=== PATIENT | male | born 1985 | race Caucasian/White ===

== ENCOUNTER 2017-02-20 02:22 | Emergency (ER) | payer SELFPAY ==
[~2017-02-20] VITALS: Ht 175.3 cm; Wt 75.0 kg
[~2017-02-20 02:22] MED LIST: HYDR-2952 PO; Z.0.NO CURRENT MEDS
[2017-02-20 02:24] VITALS: BP 145/90; PULSE 95; RESP 20; TEMP 98.1; O2SAT 100
[2017-02-20 04:38] VITALS: BP 129/88; PULSE 96; RESP 14; O2SAT 97
--- NOTE | 2017-02-20 06:25 | PD ---
HPI Chief Complaint: OD/ Ingestion Time Seen by Provider: 02:25 Travel History International Travel<30 days: No Contact w/Intl Traveler<30days: No Traveled to known affect area: No History of Present Illness HPI Patient had an unintentional overdose of heroin . Pt comes in by paramedics who gave him 0.4 mg of Narcan with good response . Pt now is wide awake and during his time in the ER he does not fall asleep again or become respiratorily distressed no decreased RR PFSH Past Medical History Depression: Yes (STATED WAS PRESCRIBED ZOLOFT, BUT DOESN'T TAKE IT) Cancer: No Cardiovascular Problems: No Endocrine: No Genitourinary: No Medical other: Yes (HX DRUG USE) Musculoskeletal: Yes Neurologic: Yes (HX SUBDURAL HEMORRHAGE 2003) Respiratory: No Influenza Vaccination: No Past Surgical History Pacemaker: No Other Surgery: Yes (RIGHT ARM SURGERY X 4) Social History Alcohol Use: Yes Tobacco Use: Yes Substance Use: No (PT DENIES) Allergies-Medications (Allergen,Severity, Reaction): Coded Allergies: No Known Allergies (Verified , 05/28/11) Reported Meds & Prescriptions Reported Meds & Active Scripts Active No Active Prescriptions or Reported Medications Physical Exam Narrative GENERAL: Awake alert oriented 3 no signs of somnolence or respiratory depression SKIN: Focused skin assessment warm/dry. HEAD: Atraumatic. Normocephalic. EYES: Pupils equal and round. No scleral icterus. No injection or drainage. ENT: No nasal bleeding or discharge. Mucous membranes pink and moist. NECK: Trachea midline. No JVD. CARDIOVASCULAR: Regular rate and rhythm. No murmur appreciated. RESPIRATORY: No accessory muscle use. Clear to auscultation. Breath sounds equal bilaterally. GASTROINTESTINAL: Abdomen soft, non-tender, nondistended. Hepatic and splenic margins not palpable. MUSCULOSKELETAL: No obvious deformities. No clubbing. No cyanosis. No edema. NEUROLOGICAL: Awake and alert. No obvious cranial nerve deficits. Motor grossly within normal limits. Normal speech. PSYCHIATRIC: Appropriate mood and affect; insight and judgment normal. Data Data Last Documented VS Vital Signs Date Time Temp Pulse Resp B/P (MAP) Pulse Ox O2 Delivery O2 Flow Rate FiO2 02/20/17 06:29 78 16 100/54 (69) 99 02/20/17 04:38 Room Air 02/20/17 02:24 98.1 Orders Orders Ed Discharge Order (02/20/17 06:26) Ondansetron Odt (Zofran Odt) (02/20/17 06:45) MDM Medical Decision Making Medical Screen Exam Complete: Yes Emergency Medical Condition: Yes Differential Diagnosis Heroin overdose accidental versus heroin overdose intentional versus polysubstance ingestion Narrative Course Patient slept for 4 hours in the ER he did not have any somnolence did not have any respiratory pression his oxygen saturation remained 95 and above the entire time was arousable to voice the entire time safe for discharge Diagnosis Primary Impression: Overdose of heroin Patient Instructions: Adult Overdose (ED), General Instructions Scripts No Active Prescriptions or Reported Meds Disposition: 01 DISCHARGE HOME Condition: Noble Felix MD Feb 20, 2017 06:25
[2017-02-20 06:29] VITALS: BP 100/54
[2017-02-20] MEDS ORDERED: ONDANSETRON ODT 4 MG TAB PO ONE (06:45)
== END 2017-02-20 07:23 | disposition home or self-care (01) ==
LOC: NEPE 02:22
DX: T40.1X1A Poisoning by heroin, accidental (unintentional), initial encounter (principal)
CPT/HCPCS: 99282

== ENCOUNTER 2017-08-23 16:22 | Emergency (ER) | payer SELFPAY ==
[~2017-08-23] VITALS: Ht 175.3 cm; Wt 68.0 kg
[2017-08-23 17:30] VITALS: BP 171/88; PULSE 74; RESP 18; TEMP 97.5; O2SAT 100
== END 2017-08-23 18:30 | disposition left against medical advice (07) ==
LOC: NED 16:22
DX: M54.9 Dorsalgia, unspecified (principal)
CPT/HCPCS: 99281